=== PATIENT | female | born 1960 | race Caucasian/White ===

== ENCOUNTER → 2017-01-01 | Outpatient (CLI) | payer BC | LOC: MC.RAD 12-29 07:00 | DX: Z12.31 Encounter for screening mammogram for malignant neoplasm of breast (principal) ==

== ENCOUNTER → 2017-06-05 | Outpatient (CLI) | payer BC | LOC: ZCOL.LAB 15:05 | DX: Z01.812 Encounter for preprocedural laboratory examination (principal); Z86.19 Personal history of other infectious and parasitic diseases ==

== ENCOUNTER → 2022-05-06 | Outpatient (CLI) | payer BC | LOC: MC.RAD 09:29 | DX: Z12.31 Encounter for screening mammogram for malignant neoplasm of breast (principal) ==

== ENCOUNTER 2023-12-18 05:53 | Day surgery (SDC) | payer MEDICARE ==
[~2023-12-18] VITALS: Ht 157.5 cm; Wt 67.6 kg
[~2023-12-18 05:53] MED LIST: LR 1,000 ML IV SCH; Ondansetron 4 MG/2 ML VIAL IV PRN
[2023-12-18 07:55] VITALS: BP 108/52; PULSE 93; TEMP 97.6
--- NOTE | 2023-12-18 07:55 | NUR ---
PATIENT RETURNED TO BAY 2 IN ENDOSCOPY. SHE IS ALERT AND ORIENTED. AT BEDSIDE. VITAL SIGNS WNL. PATIENT REQUESTS DIET PEPSI AND A MUFFIN. CALL LIGHT WITHIN REACH, WILL CONTINUE TO MONITOR.
[2023-12-18 08:10] VITALS: BP 123/54; PULSE 90
--- NOTE | 2023-12-18 08:10 | NUR ---
PATIENT IS DOING WELL. SHE DENIES ANY PAIN OR NAUSEA AFTER EATING AND DRINKING. VITAL SIGNS WNL. IV DISCONTINUED. WAITING FOR PHYSICIAN TO SPEAK WITH PATIENT. WILL CONTINUE TO MONITOR.
[2023-12-18 08:25] VITALS: BP 121/60; PULSE 89
--- NOTE | 2023-12-18 08:25 | NUR ---
PATIENT IS READY FOR DISCHARGE. PHYSICIAN AT BEDSIDE. LAST SET OF VITAL SIGNS WNL. DISCHARGE INSTRUCTIONS REVIEWED WITH PATIENT AND HER . WILL DISCHARGE VIA WC ONCE PATIENT IS DRESSED.
[2023-12-18 14:17] VITALS: BP 132/66; PULSE 102; TEMP 98.1
[2023-12-18] MEDS ORDERED: MOBIC15 MG PO (14:20)
[2023-12-18] MEDS ORDERED: JANUMET 1000 MG1 TA1 PO (14:20)
[2023-12-18] MEDS ORDERED: CRESTOR5 MG PO (14:21)
[2023-12-18] MEDS ORDERED: PRINIVIL10 MG PO (14:21)
[2023-12-18] MEDS ORDERED: PROTONIX 40MG T40 MG PO (14:22)
[2023-12-18] MEDS ORDERED: EFFEXOR-XR150 MG PO (14:22)
[2023-12-18] MEDS ORDERED: EFFEXOR XR37.5 MG/CA PO (14:23)
== END 2023-12-18 08:36 | disposition home or self-care (01) ==
LOC: SDCO 05:53
DX: K21.9 Gastro-esophageal reflux disease without esophagitis (principal); K57.30 Diverticulosis of large intestine without perforation or abscess without bleeding; K59.00 Constipation, unspecified; R42 Dizziness and giddiness; Z79.899 Other long term (current) drug therapy; D50.9 Iron deficiency anemia, unspecified
CPT/HCPCS: J2704; J7120